=== PATIENT | male | born 1990 | race Hispanic/Latino ===

== ENCOUNTER → 2017-10-12 | Outpatient (CLI) | payer OTHER ==
--- NOTE | 2017-10-12 13:27 | Diagnostic Imaging Report ---
PROCEDURE:X-RAY ABDOMEN - KUB COMPARISON:None. INDICATIONS:CALCULUS OF KIDNEY FINDINGS: There is a non-obstructed bowel-gas pattern. There are no calcifications projected over the renal shadows, expected course of the ureters or bladder. Questionable left pelvic calcification is probably a phlebolith. There are no acute osseous abnormalities. The lung bases are clear. CONCLUSION: Normal abdominal radiograph. Dictated by: Vikas Novoa M.D. on 10/12/2017 at 13:31 Electronically approved by: Vikas Novoa M.D. on 10/12/2017 at 13:31
== END ==
LOC: RAD 11:58
PROVIDERS: ATTEND Urology
DX: N20.1 Calculus of ureter (principal)
CPT/HCPCS: 74018